=== PATIENT | male | born 1980 | race Caucasian/White ===

== ENCOUNTER 2017-02-26 20:11 | Emergency (ER) | payer BC ==
[2017-02-26 20:15] VITALS: BP 144/88
--- NOTE | 2017-02-26 21:26 | ER Document Report ---
HPI - HPI Pain Level: 3 Context: Patient is a 36-year-old male who presents emergency department with multiple complaints at the behest of his family. Patient's states that he has a left ankle injury that hurts when he walks but otherwise he has been able to walk without any difficulty. States that he was running in the [place] when he tripped and fell and rolled his ankle about 2 weeks ago. Other than that he says he has been maintaining his normal activities. There is also a small break in the skin over his ankle that he states has been tender to touch and red and swollen. States he does have a history of staph in his lung but he is unaware if it was MRSA. Otherwise he also admits to to yesterday punching a wall out of frustration from an incident that happened at home. He admits to pain at the third phalanx metacarpal joint on the left hand. He has been able to move his finger without any difficulty denies any numbness or tingling. Does admit to swelling. Past Medical History - Social History Smoking Status: Never Smoker Frequency of alcohol use: Occasional Drug Abuse: None Family History: Reviewed & Not Pertinent Patient has suicidal ideation: No Patient has homicidal ideation: No Renal/ Medical History: Denies: Hx Peritoneal Dialysis Vertical Provider Document - CONSTITUTIONAL Agree With Documented VS: Yes Notes: PHYSICAL EXAM GENERAL: Alert, interacts well. EXTREMITIES: Evidence of mild edema over the left third metacarpal phalanx joint without any evidence of decreased range of motion or deformity, ecchymosis. Volleyball [employer]er strength is 5 out of 5 bilaterally. Capillary refill in bilateral upper extremities less than 2 seconds. Left ankle with an anterior tender, erythematous area that is come to ahead without any evidence of purulent drainage. No palpable fluctuation underneath. No pain with axial loading of the joint. Moves all 4 extremities spontaneously. No edema, radial and dorsalis pedis pulses 2/4 bilaterally. No cyanosis. NEUROLOGICAL: Alert and oriented x4. Normal speech. PSYCH: Normal affect, normal mood. SKIN: Warm, dry, normal turgor. No rashes or lesions noted. - INFECTION CONTROL TRAVEL OUTSIDE OF THE [place] IN LAST 30 DAYS: No - RESPIRATORY O2 Sat by Pulse Oximetry: 99 Course - Re-evaluation Re-evalutation: 02/26/17 22:02 Patient is a 36-year-old male who is hemodynamically stable, no acute distress afebrile. No evidence of fracture dislocation noted on hand x-ray. No evidence of ankle injury. Given that patient has had a skin injury that has been there for 2 weeks causing pain, will discharge home on antibiotics with coverage for MRSA given questionable history of previous drug resistance. At this time patient is declining any splint or crutches. Discussed with him signs and symptoms indicating return to the emergency department otherwise can follow-up with primary care patient agrees with plan. - Vital Signs Vital signs: Temp Pulse Resp BP Pulse Ox 99.8 F 87 18 144/88 H 99 02/26/17 20:14 02/26/17 20:14 02/26/17 20:14 02/26/17 20:14 02/26/17 20:14 - Diagnostic Test Radiology reviewed: Image reviewed, Reports reviewed Discharge - Discharge Clinical Impression: Hand injury Qualifiers: Encounter type: initial encounter Laterality: left Qualified Code(s): S69.92XA - Unspecified injury of left wrist, hand and finger(s), initial encounter Cellulitis Qualifiers: Site of cellulitis: extremity Site of cellulitis of extremity: lower extremity Laterality: left Qualified Code(s): L03.116 - Cellulitis of left lower limb Ankle pain Qualifiers: Chronicity: acute Laterality: left Qualified Code(s): M25.572 - Pain in left ankle and joints of left foot Condition: Good Disposition: HOME, SELF-CARE Instructions: Sprained Ankle ([facility]), Ice & Elevation ([facility]), Contusion ([facility]), Cellulitis ([facility]) Prescriptions: Clindamycin HCl 450 mg PO TID 5 Days capsule
--- NOTE | 2017-02-26 21:55 | RADIOLOGY REPORT (SQ) ---
EXAM DESCRIPTION: ANKLE LEFT COMPLETE COMPLETED DATE/TIME: 02/26/2017 9:42 pm REASON FOR STUDY: fell two weeks ago with left ankle pain COMPARISON: None. NUMBER OF VIEWS: Three views. TECHNIQUE: AP, lateral, and oblique radiographic images acquired of the left ankle. LIMITATIONS: None. FINDINGS: MINERALIZATION: Normal. BONES: No acute fracture or dislocation. No worrisome bone lesions. JOINTS: No effusions. SOFT TISSUES: No soft tissue swelling. No foreign body. OTHER: No other significant finding. IMPRESSION: NEGATIVE STUDY OF THE LEFT ANKLE. NO RADIOGRAPHIC EVIDENCE OF ACUTE INJURY. TECHNICAL DOCUMENTATION: JOB ID: [id number] [employer]- All Rights Reserved
--- NOTE | 2017-02-26 21:56 | RADIOLOGY REPORT (SQ) ---
EXAM DESCRIPTION: HAND LEFT 3 VIEWS COMPLETED DATE/TIME: 02/26/2017 9:42 pm REASON FOR STUDY: punched a wall yesterday, swelling over 3rd PIP COMPARISON: None. EXAM PARAMETERS: NUMBER OF VIEWS: Three views. TECHNIQUE: AP, lateral and oblique radiographic images acquired of the left hand. LIMITATIONS: None. FINDINGS: MINERALIZATION: Normal. BONES: No acute fracture or dislocation. No worrisome bone lesions. JOINTS: No effusions. SOFT TISSUES: No soft tissue swelling. No foreign body. OTHER: No other significant finding. IMPRESSION: NEGATIVE STUDY OF THE LEFT HAND. NO RADIOGRAPHIC EVIDENCE OF ACUTE INJURY. TECHNICAL DOCUMENTATION: JOB ID: [id number] [employer]- All Rights Reserved
[2017-02-26] MEDS ORDERED: CLINDAMYCIN HCL 150 MG CAPSULE PO ONE (22:05)
== END 2017-02-26 22:28 | disposition home or self-care (01) ==
LOC: ER 20:11
DX: S99.912A Unspecified injury of left ankle, initial encounter (principal); L03.116 Cellulitis of left lower limb; M25.572 Pain in left ankle and joints of left foot; W01.0XXA Fall on same level from slipping, tripping and stumbling without subsequent striking against object, initial encounter; Y93.02 Activity, running; S69.92XA Unspecified injury of left wrist, hand and finger(s), initial encounter; Y92.821 Forest as the place of occurrence of the external cause; W22.01XA Walked into wall, initial encounter; Y92.009 Unspecified place in unspecified non-institutional (private) residence as the place of occurrence of the external cause
CPT/HCPCS: 99283